=== PATIENT | female | born 1945 | race Caucasian/White ===

== ENCOUNTER 2017-06-25 15:25 | Emergency (ER) | payer OTHER ==
[~2017-06-25] VITALS: Ht 162.6 cm; Wt 62.1 kg
== END 2017-06-25 22:36 | disposition home or self-care (01) ==
LOC: ER 15:25
DX: K29.70 Gastritis, unspecified, without bleeding (principal)

== ENCOUNTER 2019-01-28 18:13 | Emergency (ER) | payer OTHER ==
[~2019-01-28] VITALS: Ht 157.5 cm; Wt 71.7 kg
== END 2019-01-28 21:11 | disposition home or self-care (01) ==
LOC: ER 18:13
DX: R42 Dizziness and giddiness (principal)

== ENCOUNTER 2019-05-18 15:01 | Emergency (ER) | payer OTHER ==
[~2019-05-18] VITALS: Ht 162.6 cm; Wt 76.2 kg
[2019-05-18] MEDS ORDERED: SYNTHROID50 MCG (15:37)
== END 2019-05-18 21:32 | disposition home or self-care (01) ==
LOC: ER 15:01
DX: R42 Dizziness and giddiness (principal); T50.995A Adverse effect of other drugs, medicaments and biological substances, initial encounter; Y92.89 Other specified places as the place of occurrence of the external cause

== ENCOUNTER 2021-07-18 13:58 | Emergency (ER) | payer OTHER ==
[~2021-07-18] VITALS: Ht 157.5 cm; Wt 72.6 kg
[~2021-07-18 13:58] MED LIST: SYNTHROID50 MCG
[2021-07-18] MEDS ORDERED: CARAFATE1 GM (15:15)
[2021-07-18] MEDS ORDERED: VAZALORE81 MG (15:15)
[2021-07-18] MEDS ORDERED: ROSUVASTATIN CAL5 MG (15:16)
[2021-07-18] MEDS ORDERED: PEPCID20 MG (15:16)
== END 2021-07-18 20:41 | disposition home or self-care (01) ==
LOC: ER 13:58
DX: U07.1 COVID-19 (principal); Z88.8 Allergy status to other drugs, medicaments and biological substances

== ENCOUNTER 2022-05-01 10:58 | Emergency (ER) | payer OTHER ==
[~2022-05-01] VITALS: Ht 162.6 cm; Wt 73.9 kg
[~2022-05-01 10:58] MED LIST changes: +CARAFATE1 GM; +PEPCID20 MG; +ROSUVASTATIN CAL5 MG; +VAZALORE81 MG
== END 2022-05-01 22:00 | disposition home or self-care (01) ==
LOC: ER 10:58
DX: M25.552 Pain in left hip (principal); M54.50 Low back pain, unspecified; M25.562 Pain in left knee; I10 Essential (primary) hypertension; E03.9 Hypothyroidism, unspecified

== ENCOUNTER 2023-06-22 11:35 | Emergency (ER) | payer OTHER ==
[~2023-06-22] VITALS: Ht 162.6 cm; Wt 73.5 kg
[2023-06-22] MEDS ORDERED: AMLODIPINE BESYL5 MG PO (11:54)
[2023-06-22] MEDS ORDERED: KETOROLAC TROMETHAMINE 60 MG VIAL IM STA (13:09)
== END 2023-06-22 16:36 | disposition home or self-care (01) ==
LOC: ER 11:35
DX: S00.93XA Contusion of unspecified part of head, initial encounter (principal); W18.30XA Fall on same level, unspecified, initial encounter; Y93.9 Activity, unspecified; Y92.9 Unspecified place or not applicable; Y99.9 Unspecified external cause status
CPT/HCPCS: 70450; 73080; 73560; 96372; 99284; J1885

== ENCOUNTER 2024-12-07 23:47 | Emergency (ER) | payer OTHER ==
[~2024-12-07] VITALS: Ht 162.6 cm; Wt 72.6 kg
[~2024-12-07 23:47] MED LIST changes: +AMLODIPINE BESYL5 MG PO
[2024-12-07] MEDS ORDERED: LIPOCHOL PLUS0.5 MG (23:59)
[2024-12-07] MEDS ORDERED: ACID REDUCER20 M1 (23:59)
[2024-12-08] MEDS ORDERED: TETANUS & DIPHTHERIA TOX,ADULT 0.5 ML VIAL IM STA (00:54)
[2024-12-08] MEDS ORDERED: 0.9 % SODIUM CHLORIDE 500 ML IV ONE (01:00)
[2024-12-08] MEDS ORDERED: TETANUS DIPHTHERIA TOX. ADSOR 5 ML VIAL IM ONE (01:28)
[2024-12-08 02:07] LABS: BASO % 0.5 % (0.1-1.2); EOS # 0.00 (0.04-0.54); EOS % 0.0 % (0.7-7.0); LYMPH # 1.60 (1.18-3.74); LYMPH % 25.5 % (19.3-53.1); MEAN PLATELET VOLUME 9.70 fl (9.4-12.4); MONO # 0.61 (0.24-0.82); MONO % 9.7 % (4.7-12.5); NEUT # 4.02 (1.56-6.13); NEUT % 64.0 % (34.0-71.1); RED CELL DISTRIBUTION WIDTH 13.0 % (11.6-14.4)
[2024-12-08 02:21] LABS: COVID-19 AG POSITIVE (NEGATIVE)
[2024-12-08 02:27] LABS: INR 1.1
[2024-12-08 02:32] LABS: ALT/SGPT 19.0 U/L (12-78); AST/SGOT 19.0 U/L (15-37); BILIRUBIN TOTAL 0.86 mg/dL (0.3-1.2); BUN CREA RATIO 18.0 (7.0-25.0); CREATININE SERUM 1.11 mg/dL (0.55-1.02); GFR 47.54; GLOBULINA 3.7 G/DL (2.4-3.5); GLUCOSE FASTING 140.0 mg/dL (65-100); OSMOLALITY SERUM 282.0 MOSM/KG (275-295)
[2024-12-08] MEDS ORDERED: DOLOGESIC 500-1 EACH PO (06:16)
[2024-12-08] MEDS ORDERED: MECLIZINE HCL25 M1 PO (06:16)
[2024-12-08] MEDS ORDERED: ZYNCOF 20-400120 ML PO (06:16)
[2024-12-08] MEDS ORDERED: ZYRTEC10 M3 PO (06:16)
[2024-12-08] MEDS ORDERED: ZOFRAN8 MG PO (06:16)
[2024-12-08] MEDS ORDERED: ONDANSETRON 4 MG TAB.RAPDIS PO STA (06:22)
== END 2024-12-08 06:25 ==
LOC: ER 23:50
PROVIDERS: General Practice
DX: U07.1 COVID-19 (principal); S01.81XA Laceration without foreign body of other part of head, initial encounter; W19.XXXA Unspecified fall, initial encounter; Y93.89 Activity, other specified; Y92.89 Other specified places as the place of occurrence of the external cause; Y99.8 Other external cause status; R55 Syncope and collapse; Z88.6 Allergy status to analgesic agent
CPT/HCPCS: 12011; 36415; 70450; 90471; 90714; 93005; 96365; 96366; 99284; J1670; J7042

== ENCOUNTER 2025-02-27 20:28 | Emergency (ER) | payer OTHER ==
[~2025-02-27] VITALS: Ht 162.6 cm; Wt 71.7 kg
[~2025-02-27 20:28] MED LIST changes: +ACID REDUCER20 M1; +DOLOGESIC 500-1 EACH PO; +LIPOCHOL PLUS0.5 MG; +MECLIZINE HCL25 M1 PO; +ZOFRAN8 MG PO; +ZYNCOF 20-400120 ML PO; +ZYRTEC10 M3 PO
[2025-02-27 21:18] VITALS: BP 123/78; O2SAT 97
[2025-02-27] MEDS ORDERED: HYOSCYAMINE SULFATE 0.125 MG TAB.SUBL SL ONE (21:30)
[2025-02-27] MEDS ORDERED: FAMOtidine 10 MG/ML (4ML VIAL) IV PUSH ONE (21:30)
[2025-02-27] MEDS ORDERED: ONDANSETRON HCL 2 MG/ML VIAL IM ONE (21:30)
[2025-02-27] MEDS ORDERED: ONDANSETRON HCL 2 MG/ML VIAL ONE (21:53)
[2025-02-27] MEDS ORDERED: HYOSCYAMINE SULFATE 0.125 MG TAB.SUBL ONE (21:53)
[2025-02-27] MEDS ORDERED: FAMOTIDINE/PF 20 MG/2 ML VIAL ONE ×2 (21:54)
[2025-02-27 22:11] LABS: BASO % 0.8 % (0.1-1.2); EOS # 0.15 (0.04-0.54); EOS % 1.6 % (0.7-7.0); LYMPH # 4.02 (1.18-3.74); LYMPH % 42.0 % (19.3-53.1); MEAN PLATELET VOLUME 9.30 fl (9.4-12.4); MONO # 0.61 (0.24-0.82); MONO % 6.4 % (4.7-12.5); NEUT # 4.70 (1.56-6.13); NEUT % 49.1 % (34.0-71.1); RED CELL DISTRIBUTION WIDTH 14.3 % (11.6-14.4)
[2025-02-27 22:35] LABS: COVID-19 AG NEGATIVE (NEGATIVE)
[2025-02-28] MEDS ORDERED: PROTONIX40 MG PO (00:16)
[2025-02-28] MEDS ORDERED: LEVSIN/SL0.125 MG SL (00:16)
== END 2025-02-28 00:35 | disposition home or self-care (01) ==
LOC: ER 20:28
PROVIDERS: General Practice
DX: R11.0 Nausea (principal); I10 Essential (primary) hypertension; Z88.8 Allergy status to other drugs, medicaments and biological substances; K29.70 Gastritis, unspecified, without bleeding; Z20.822 Contact with and (suspected) exposure to COVID-19
CPT/HCPCS: 36415; 96365; 96372; 99282; J2405; J3490